=== PATIENT | female | born 1950 | race Caucasian/White ===

== ENCOUNTER 2017-08-22 10:18 | Emergency (ER) | payer MEDICARE, BC ==
[2017-08-22] MEDS ORDERED: Ketorolac INJ* 30 MG/ML 1 ML VIAL IV ONE (11:50)
[2017-08-22 12:35] LABS: ABS Basophils 0 10^3/ul (0-0.2); ABS Eosinophils 0.1 10^3/ul (0-0.6); ABS Lymphocytes 1.9 10^3/ul (1.0-4.8); ABS Monocytes 0.6 10^3/ul (0-0.8); ABS Neutrophils 5.5 10^3/ul (1.5-7.7); ABS Nucleated RBC 0 10^3/ul; Hematocrit 44 % (35-47); Hemoglobin 15.3 g/dl (12.0-16.0); Lymphocyte % 23.4 % (25-47); Mean Corpuscular HGB Conc 34 g/dl (31-36); Mean Corpuscular Hemoglobin 32 pg (27-31); Mean Corpuscular Volume 92 fL (80-97); Mean Platelet Volume 8 um3 (7.4-10.4); Nucleated Red Blood Cells % 0; Platelet Count 275 10^3/ul (150-450); Red Blood Count 4.85 10^6/ul (4.0-5.4); Red Cell Distribution Width 14 % (10.5-15); White Blood Count 8.1 10^3/ul (3.5-10.8)
[2017-08-22 12:48] LABS: INR 0.86 (0.77-1.02)
[2017-08-22 12:52] LABS: EGFR Non-African American 58.3 (>60)
--- NOTE | 2017-08-22 13:05 | RAD ---
Indication: Pain under the RIGHT scapula for 4 days. Chronic obstructive pulmonary disease. Comparison: June 30, 2017 CT. Technique: Upright AP 1210 hours Report: Elevated lung volumes. Mild airspace consolidation in the distribution of the medial segment of the RIGHT middle lobe partial obscuration of the RIGHT mediastinal margin. Negative for volume loss to favor atelectasis. Negative for pleural effusion or pneumothorax. The heart, pulmonary vasculature, and mediastinal contours are unremarkable. Unremarkable soft tissue contours and osseous structures. IMPRESSION: Mild alveolar consolidation in the distribution of the medial segment of the RIGHT middle lobe suspicious for pneumonia in the appropriate clinical context.
[2017-08-22] MEDS ORDERED: Iodixanol* (CONTRAST) 320 MG/ML 100 ML SDV IV ONE (13:57)
--- NOTE | 2017-08-22 15:03 | RAD ---
INDICATION: Chronic obstructive pulmonary disease. Pain under the RIGHT shoulder blade. Pressure surrounding body at ribs. History of parotid gland resection. COMPARISON: Chest radiograph of the same date and June 30, 2017 CT. TECHNIQUE: Multidetector CT images were obtained from the lung apices to the upper abdomen with 92 mL Visipaque 320 IV contrast. Pulmonary angiogram protocol. Multiplanar reformation including with maximum intensity projection. REPORT: Clear lungs and pleural spaces. Negative for pneumothorax. Negative for thoracic lymphadenopathy, cardiomegaly, pericardial effusion. Normal diameter thoracic aorta. Negative for dissection. No filling defects are identified from the main to the subsegmental pulmonary arteries to indicate presence of a pulmonary embolism. Images through the upper abdomen are remarkable for prior cholecystectomy. Negative for thoracic fractures. 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 Densely sclerotic 1 cm lesion at the T1 vertebral body is consistent with a benign bone island. Less specific 1 cm sclerotic focus at the T8 vertebral body or 2016 CT. IMPRESSION: 1. No evidence for pulmonary embolism. 2. No evidence for pneumonia. RIGHT epicardial fat pad likely accounts for opacity noted at the level of the medial segment of the RIGHT middle lobe on chest radiograph. 3. Indeterminate 1 cm sclerotic lesion at the T8 vertebral body. Consider follow-up bone scan for further assessment especially in setting of previous malignancy. Correlate for reason of previous parotid gland resection.
[2017-08-22] MEDS ORDERED: Sucralfate TAB* 1 GM PO ONE (16:13)
[2017-08-22 16:20] VITALS: BP 155/86
--- NOTE | 2017-08-22 20:48 | ED ---
Jon Almaraz Julia, scribed for Angus Ch MD on 08/22/17 at 1156 . Complex/Multi-Sys Presentation - HPI Summary HPI Summary: This patient is a 67 year old F presenting to [facility] accompanied by with a chief complaint shoulder pain described as a knife underneath my shoulder blade gradually worsening since last night. Patient reports difficulty breathing this morning, achy pressure lower rib pain wrapping around her body, belching, nausea, and decreased appetite. Patient denies abnormal BM. The patient rates the pain 6/10 in severity. Symptoms uncharged by activity or ibuprofen. She has urinary incontinence at baseline She doesnt know what she was doing on onset of pain. Pt reports use of Protonix. - History Of Current Complaint Chief Complaint: EDGeneral Time Seen by Provider: 08/22/17 11:39 Hx Obtained From: Patient Onset/Duration: Gradual Onset, Lasting Hours Timing: Constant Location: Pain At: - shoulders and lower ribs Character: Sharp - "knife", Pressure Aggravating Factor(s): nothing Alleviating Factor(s): nothing Associated Signs And Symptoms: Positive: Other - difficulty breathing this morning, achy pressure lower rib pain wrapping around her body, belching, nausea , and decreased appetite - Allergies/Home Medications Allergies/Adverse Reactions: Allergies Allergy/AdvReac Type Severity Reaction Status Date / Time Sulfa (Sulfonamide Allergy Unknown Verified 08/22/17 12:27 Antibiotics) Reaction Details PMH/Surg Hx/FS Hx/Imm Hx GI History: Reports: Hx Gastroesophageal Reflux Disease EENT History: Denies: Hx Deafness - Surgical History Surgery Procedure, Year, and Place: cholecystectomy Infectious Disease History: Yes Infectious Disease History: Reports: Hx Shingles Denies: Traveled Outside the [place] in Last 30 Days - Family History Known Family History: Positive: Other - hyperthyroidism - Social History Lives: With Family Review of Systems Positive: Shortness Of Breath Gastrointestinal: Negative - changes in BM Positive: Vomiting - retching, Nausea, Other - decreased appetite Positive: Myalgia - shoulder pain and lower rib pain All Other Systems Reviewed And Are Negative: Yes Physical Exam - Summary Physical Exam Summary: Appearance: The patient is well-nourished in no acute distress and in no acute pain. Skin: The skin is warm and dry and skin color reflects adequate perfusion. HEENT: The head is normocephalic and atraumatic. The pupils are equal and reactive. The conjunctivae are clear and without drainage. Nares are patent and without drainage. Mouth reveals moist mucous membranes and the throat is without erythema and exudate. The external ears are intact. The ear canals are patent and without drainage. The tympanic membranes are intact. Neck: the neck is supple with full range of motion and non-tender. There are no carotid bruits. There is no neck vein distension. Respiratory: Chest is non-tender. Lungs are clear to auscultation and breath sounds are symmetrical and equal. Cardiovascular: Heart is regular rate and rhythm. There is no murmur or rub auscultated. There is no peripheral edema and pulses are symmetrical and equal. Abdomen: The abdomen is soft and non-tender. There are normal bowel sounds heard in all four quadrants and there is no organomegaly palpated. Musculoskeletal: There is no back tenderness noted. Extremities are non-tender with full range of motion. There is good capillary refill. There is no peripheral edema or calf tenderness elicited. Neurological: Patient is alert and oriented to person, place and time. The patient has symmetrical motor strength in all four extremities. Cranial nerves are grossly intact. Deep tendon reflexes are symmetrical and equal in all four extremities. Psychiatric: The patient has an appropriate affect and does not exhibit any anxiety or depression. Triage Information Reviewed: Yes Vital Signs On Initial Exam: Initial Vitals Temp Pulse Resp BP Pulse Ox 97.1 F 64 18 165/93 98 08/22/17 10:22 08/22/17 10:22 08/22/17 10:22 08/22/17 10:22 08/22/17 10:22 Vital Signs Reviewed: Yes Diagnostics - Vital Signs Vital Signs Temp Pulse Resp BP Pulse Ox 08/22/17 10:22 97.1 F 64 18 165/93 98 - Laboratory Lab Results: Lab Results 08/22/17 08/22/17 08/22/17 Range/Units 12:24 12:24 12:24 WBC 8.1 (3.5-10.8) 10^3/ul RBC 4.85 (4.0-5.4) 10^6/ul Hgb 15.3 (12.0-16.0) g/dl Hct 44 (35-47) % MCV 92 (80-97) fL MCH 32 H (27-31) pg MCHC 34 (31-36) g/dl RDW 14 (10.5-15) % Plt Count 275 (150-450) 10^3/ul MPV 8 (7.4-10.4) um3 Neut % (Auto) 68.1 (38-83) % Lymph % (Auto) 23.4 L (25-47) % [place] % (Auto) 7.1 (1-9) % Eos % (Auto) 1.0 (0-6) % Baso % (Auto) 0.4 (0-2) % Absolute Neuts (auto) 5.5 (1.5-7.7) 10^3/ul Absolute Lymphs (auto) 1.9 (1.0-4.8) 10^3/ul Absolute Monos (auto) 0.6 (0-0.8) 10^3/ul Absolute Eos (auto) 0.1 (0-0.6) 10^3/ul Absolute Basos (auto) 0 (0-0.2) 10^3/ul Absolute Nucleated RBC 0 10^3/ul Nucleated RBC % 0 INR (Anticoag Therapy) (0.77-1.02) D-Dimer, Quantitative (Less Than 230) ng/mL Sodium 137 (133-145) mmol/L Potassium 4.1 (3.5-5.0) mmol/L Chloride 103 (101-111) mmol/L Carbon Dioxide 27 (22-32) mmol/L Anion Gap 7 (2-11) mmol/L BUN 14 (6-24) mg/dL Creatinine 0.95 (0.51-0.95) mg/dL Est GFR ( Amer) 75.0 (>60) Est GFR (Non-Af Amer) 58.3 (>60) BUN/Creatinine Ratio 14.7 (8-20) Glucose 101 H (70-100) mg/dL Lactic Acid (0.5-2.0) mmol/L Calcium 9.5 (8.6-10.3) mg/dL Total Bilirubin 0.50 (0.2-1.0) mg/dL AST 16 (13-39) U/L ALT 15 (7-52) U/L Alkaline Phosphatase 64 (34-104) U/L Troponin I 0.00 (<0.04) ng/mL B-Natriuretic Peptide 26 ( - 100) pg/mL Total Protein 6.9 (6.4-8.9) g/dL Albumin 4.0 (3.2-5.2) g/dL Globulin 2.9 (2-4) g/dL Albumin/Globulin Ratio 1.4 (1-3) 08/22/17 08/22/17 08/22/17 Range/Units 12:24 12:24 14:41 WBC (3.5-10.8) 10^3/ul RBC (4.0-5.4) 10^6/ul Hgb (12.0-16.0) g/dl Hct (35-47) % MCV (80-97) fL MCH (27-31) pg MCHC (31-36) g/dl RDW (10.5-15) % Plt Count (150-450) 10^3/ul MPV (7.4-10.4) um3 Neut % (Auto) (38-83) % Lymph % (Auto) (25-47) % [place] % (Auto) (1-9) % Eos % (Auto) (0-6) % Baso % (Auto) (0-2) % Absolute Neuts (auto) (1.5-7.7) 10^3/ul Absolute Lymphs (auto) (1.0-4.8) 10^3/ul Absolute Monos (auto) (0-0.8) 10^3/ul Absolute Eos (auto) (0-0.6) 10^3/ul Absolute Basos (auto) (0-0.2) 10^3/ul Absolute Nucleated RBC 10^3/ul Nucleated RBC % INR (Anticoag Therapy) 0.86 (0.77-1.02) D-Dimer, Quantitative < 200 (Less Than 230) ng/mL Sodium (133-145) mmol/L Potassium (3.5-5.0) mmol/L Chloride (101-111) mmol/L Carbon Dioxide (22-32) mmol/L Anion Gap (2-11) mmol/L BUN (6-24) mg/dL Creatinine (0.51-0.95) mg/dL Est GFR ( Amer) (>60) Est GFR (Non-Af Amer) (>60) BUN/Creatinine Ratio (8-20) Glucose (70-100) mg/dL Lactic Acid 1.1 (0.5-2.0) mmol/L Calcium (8.6-10.3) mg/dL Total Bilirubin (0.2-1.0) mg/dL AST (13-39) U/L ALT (7-52) U/L Alkaline Phosphatase (34-104) U/L Troponin I 0.00 (<0.04) ng/mL B-Natriuretic Peptide ( - 100) pg/mL Total Protein (6.4-8.9) g/dL Albumin (3.2-5.2) g/dL Globulin (2-4) g/dL Albumin/Globulin Ratio (1-3) Result Diagrams: 08/22/17 12:24 08/22/17 12:24 Lab Statement: Any lab studies that have been ordered have been reviewed, and results considered in the medical decision making process. - Radiology CXR Radiology Interpretation Completed By: Radiologist - Mild alveolar consolidation in the distribution of the medial segment of the RIGHT middle lobe suspicious for pneumonia in the appropriate clinical context. ED Physician has reviewed this report. - CT Chest/Thorax CT Interpretation Completed By: Radiologist - 1. No evidence for pulmonary embolism. 2. No evidence for pneumonia. RIGHT epicardial fat pad likely accounts for opacity noted at the level of the medial segment of the RIGHT middle lobe on chest radiograph. 3. Indeterminate 1 cm sclerotic lesion at the T8 vertebral body. Consider follow-up bone scan for further assessment especially in setting of previous malignancy. Correlate for reason of previous parotid gland resection. ED Physician has reviewed this report. - EKG 1028 Cardiac Rate: NL - at 61 BPM EKG Rhythm: Sinus Rhythm EKG Interpretation: non specific inverted T waves in I avL Complex Multi-Symp Course/Dx Course Of Treatment: Ms. Mcclellan presented with pain behind her right shoulder blade steady for a couple days and epigastric pain intermittently since yesterday. Her W/U including CTA and two troponins was negative and I suspect that this is GI in origin. I rocommended a short course of sulcrafate and close F/U. - Diagnoses Provider Diagnoses: Epigastric pain Discharge - Discharge Plan Condition: Stable Disposition: HOME Prescriptions: Sucralfate TAB* [Carafate*] 1 gm PO QID #40 tab Patient Education Materials: Epigastric Pain (ED) Referrals: Aravind Baldwin DO [Primary Care Provider] - 1 Week Additional Instructions: A prescription for Carafate is provided. RETURN TO THE EMERGENCY DEPARTMENT FOR CHANGING OR WORSENING SYMPTOMS. The documentation as recorded by the Jon goldberg Julia accurately reflects the service I personally performed and the decisions made by , Angus Ch MD.
== END 2017-08-22 16:20 | disposition home or self-care (01) ==
LOC: ED 10:18
DX: Z88.2 Allergy status to sulfonamides (principal); R10.13 Epigastric pain
CPT/HCPCS: 36415; 71045; 71275; 80053; 83605; 83880; 84484; 85025; 85379; 85610; 93005; 96374; 99283; A9270-GY; J1885; Q9967

== ENCOUNTER 2024-05-09 10:51 | Observation (INO) ==
[2024-05-09 11:39] LABS: ABS Basophils 0.1 10^3/uL (0.0-0.1); ABS Lymphocytes 1.2 10^3/uL (1.0-4.8); ABS Monocytes 1.2 10^3/uL (0.0-0.9); ABS Neutrophils 12.6 10^3/uL (1.5-7.6); Eosinophil % 0.3 %; Hematocrit 41.4 % (35-45); Lymphocyte % 7.9 %; Mean Corpuscular Hemoglobin 30.7 pg (27-33); Mean Corpuscular Hgb Conc 33.8 g/dL (31-36); Mean Corpuscular Volume 90.9 fL (80-97); Mean Platelet Volume 7.6 fL (7.5-11.2); Platelet Count 269 10^3/uL (150-450); Red Blood Count 4.55 10^6/uL (3.63-4.92); Red Cell Distribution Width 13.8 % (12-17); White Blood Count 15.2 10^3/uL (3.8-11.8)
[2024-05-09 12:09] LABS: Albumin 3.9 g/dL (3.2-5.2); Albumin/Globulin Ratio 1.4 (1-3); Calcium 9.4 mg/dL (8.6-10.3); Creatinine, Serum 0.92 mg/dL (0.51-0.95); Globulin 2.8 g/dL (2-4); Potassium 4.6 mmol/L (3.5-5.0); Total Bilirubin 1.1 mg/dL (0.2-1.0); Total Protein 6.7 g/dL (6.4-8.9); eGFR CKD-EPI 64.5 (>60)
[2024-05-09 13:27] LABS: High Sensitivity Troponin 1 Hr 4 pg/mL (<15)
[2024-05-09] MEDS: Enoxaparin 100 MG/ML SYR SUBCUT ONE (14:41)
[2024-05-09] MEDS: Iohexol 350 (CONTRAST) 500 ML MDV IV ONE (15:02)
[2024-05-09] MEDS ORDERED: Senna TAB 8.6 mg TAB PO PRN (16:20)
[2024-05-09 18:31] VITALS: BP 137/93
== END 2024-05-09 17:45 | disposition home or self-care (01) ==
LOC: EDHOLD 10:51 → ED 10:51 → EDHOLD 18:29
PROVIDERS: ADMIT Student in an Organized Health Care Education/Training Program; ATTEND Internal Medicine